=== PATIENT | male | born 2000 | race Caucasian/White ===

== ENCOUNTER 2023-11-27 14:53 | Emergency (ER) | payer MEDICAID ==
[2023-11-27 15:13] VITALS: O2SAT 100
--- NOTE | 2023-11-27 16:10 | ED Physician Documentation ---
PD HPI BACK PAIN - Stated complaint Stated Complaint: LOWER BACK PX - Chief complaint Chief Complaint: Back Pain - History obtained from History obtained from: Patient - Additional information Additional information: He has a lot of back pain in the past, but really became bad yesterday. He works a job with heavy lifting. Pain is in the lumbar spine. Radiates to both hips. It is worse with walking, bending, and lifting. No fevers. No IV drug use. No weakness, numbness, tingling, saddle anesthesia. PD PAST MEDICAL HISTORY - Past Medical History Past Medical History: Yes Cardiovascular: None Respiratory: None Neuro: None Endocrine/Autoimmune: None GI: None : None HEENT: None Psych: Depression, Anxiety Musculoskeletal: Chronic back pain Derm: None - Past Surgical History Past Surgical History: No - Present Medications Home Medications: Ambulatory Orders Medication Instructions Recorded Confirmed Cyclobenzaprine [Flexeril] 10 mg PO TID PRN #20 tablet 11/27/23 Meloxicam [Mobic] 7.5 mg PO BID PRN #20 tablet 11/27/23 - Allergies Allergies/Adverse Reactions: Allergies Allergy/AdvReac Type Severity Reaction Status Date / Time No Known Drug Allergies Allergy Verified 11/27/23 15:05 - Social History Does the pt smoke?: No Smoking Status: Never smoker Does the pt drink ETOH?: Yes Does the pt have substance abuse?: Yes Substance Use and Type: Marijuana - Immunizations Immunizations are current?: Yes PD ED PE NORMAL - Vitals Vital signs reviewed: Yes - General General: Alert and oriented X 3, No acute distress - Abdomen Abdomen: Non tender - Back Back: No spinal TTP, Other (He does have paralumbar spinal tenderness.) - Extremities Extremities: Other (The patient has equal and normal Achilles and patellar reflexes bilaterally. Normal sensation in all areas of the legs. Patient denies saddle anesthesia. Normal strength in flexion-extension at the ankles, knees, and flexion of the hips.) - Neuro Neuro: Alert and oriented X 3, Normal speech (.) Results - Vitals Vitals: Vital Signs - 24 hr 11/27/23 15:06 Temperature 36.9 C Heart Rate 86 Respiratory 18 Rate Blood Pressure 141/82 H O2 Saturation 100 Oxygen O2 Source Room air PD Medical Decision Making - ED course ED course: This patient has seemingly uncomplicated musculoskeletal back pain. The patient has no "red flags." Specifically denies IV drug use, fevers, incontinence, saddle anesthesia. Spinal epidural abscess was considered, given that the patient has no fever, is not diabetic, has no spinal tenderness, does not use IV drugs, and has no bilateral neurologic symptoms, the diagnosis of spinal epidural abscess is considered exceedingly unlikely. Departure - Departure Disposition: Home, Self Care Clinical Impression: Back pain Condition: Good Record reviewed to determine appropriate education?: Yes Instructions: ED Low Back Pain Injury Prescriptions: Cyclobenzaprine [Flexeril] 10 mg PO TID PRN #20 tablet PRN Reason: Spasms Meloxicam [Mobic] 7.5 mg PO BID PRN #20 tablet PRN Reason: Pain Comments: Call your doctor to arrange a follow-up appointment, make the next available appointment. In the interim, return anytime if worse or if new symptoms develop. Forms: Activity restrictions
[2023-11-27] MEDS: CYCLOBENZAPRINE 10 MG TABLET PO STA (16:16)
[2023-11-27] MEDS: KETOROLAC 60 MG/2 ML VIAL IM STA (16:16)
[2023-11-27 16:32] VITALS: BP 129/91
== END 2023-11-27 16:21 | disposition home or self-care (01) ==
LOC: ED 14:53
DX: M54.50 Low back pain, unspecified (principal); G89.29 Other chronic pain
CPT/HCPCS: 96372; 99283; A9270

== ENCOUNTER 2023-12-31 15:01 | Emergency (ER) | payer MEDICAID ==
[2023-12-31 15:19] VITALS: BP 160/90; O2SAT 100
--- NOTE | 2023-12-31 15:40 | ED Physician Documentation ---
PD HPI BACK PAIN - Stated complaint Stated Complaint: LOWER BACK PX,LT LEG NUMBNESS - Chief complaint Chief Complaint: Back Pain - History obtained from History obtained from: Patient - History of Present Illness Pain level max: 7 Pain level now: 7 Location: Lower, Right, Left Quality: Pain, Spasm Associated symptoms: Numbness. No: Fever, Weakness, Incontinent of urine, Unable to urinate, Hematuria Improves with: Rest Worsened by: Movement Contributing factors: Lifting. No: Twisting, Trauma, Anticoagulated, Cancer, IVDA, Out of meds - Additional information Additional information: Patient is a 23-year-old male who presents to the emergency department with lower back pain. He states that this is a chronic condition and has had for several years. 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 He was seen here a few weeks ago, recommended to take a week off of work and follow-up with the PCP. He states that financially he was not able to take the time off of work. Worse with movement, better with rest. The pain is mostly on the lower left but is also on the lower right. Occasionally radiates down to the left leg. He had 1 episode of numbness today to the left leg, left thigh but this is since resolved. No loss of bowel or bladder control. Not diabetic. Does not use IV drugs. Recently moved here from [place]. Review of Systems Constitutional: denies: Fever, Chills Respiratory: denies: Cough GI: denies: Nausea, Vomiting, Diarrhea Skin: denies: Rash Musculoskeletal: denies: Neck pain Neurologic: denies: Focal weakness, Numbness, Syncope, Seizure PD PAST MEDICAL HISTORY - Past Medical History Past Medical History: Yes Cardiovascular: None Respiratory: None Neuro: None Endocrine/Autoimmune: None GI: None : None HEENT: None Psych: Depression, Anxiety Musculoskeletal: Chronic back pain Derm: None - Past Surgical History Past Surgical History: No - Present Medications Home Medications: Ambulatory Orders Medication Instructions Recorded Confirmed Cyclobenzaprine [Flexeril] 10 mg PO TID PRN #20 tablet 11/27/23 Meloxicam [Mobic] 7.5 mg PO BID PRN #20 tablet 11/27/23 Cyclobenzaprine [Flexeril] 10 mg PO TID PRN #20 tablet 12/31/23 Ibuprofen [Motrin] 800 mg PO Q8H PRN #30 tablet 12/31/23 methylPREDNISolone [Medrol] 4 mg PO DAILY #1 each 12/31/23 oxyCODONE [Roxicodone] 5 - 10 mg PO Q6H PRN #14 tablet 12/31/23 MDD 6 - Allergies Allergies/Adverse Reactions: Allergies Allergy/AdvReac Type Severity Reaction Status Date / Time No Known Drug Allergies Allergy Verified 12/31/23 15:07 - Social History Does the pt smoke?: No Smoking Status: Never smoker Does the pt drink ETOH?: Yes Does the pt have substance abuse?: Yes - Immunizations Immunizations are current?: Yes - POLST Patient has POLST: No PD ED PE NORMAL - Vitals Vital signs reviewed: Yes - General General: Alert and oriented X 3, No acute distress - HEENT HEENT: Moist mucous membranes - Neck Neck: Supple, no meningeal sign - Cardiac Cardiac: RRR, Strong equal pulses - Respiratory Respiratory: No respiratory distress, Clear bilaterally - Abdomen Abdomen: Soft, Non tender, Non distended - Back Back: No spinal TTP, Other (No midline tenderness to palpation or percussion. No step-off or deformity. Paraspinal spasm present bilateral lower lumbar.) - Derm Derm: Warm and dry - Extremities Extremities: No edema, No calf tenderness / cord - Neuro Neuro: Alert and oriented X 3, Other (Normal bilateral lower extremity patellar and ankle jerk reflexes. Normal great toe extension bilaterally. no saddle anesthesia) - Psych Psych: Normal mood, Normal affect Results - Vitals Vitals: Vital Signs - 24 hr 12/31/23 15:07 Temperature 36.8 C Heart Rate 110 H Respiratory 18 Rate Blood Pressure 160/90 H O2 Saturation 100 Oxygen O2 Source Room air PD Medical Decision Making - ED course Complexity details: reviewed results, re-evaluated patient, considered differential (No cauda equina, no spinal epidural abscess, no fracture, no aortic dissection or evidence of aneursym rupture), d/w patient ED course: 23-year-old male with acute on chronic back pain. No evidence of cauda equina, epidural abscess. No focal neurological deficits. No indication for emergent imaging. Pain well-controlled here. Will place on steroids, pain medications and muscle relaxants for home. Recommend that he follow-up with his doctor for further care. Ambulating well in the emergency department. Patient counseled regarding signs and symptoms for which I believe and urgent re-evaluation would be necessary. Patient with good understanding of and agreement to plan and is comfortable going home at this time This document was made in part using voice recognition software. While efforts are made to proofread this document, sound alike and grammatical errors may occur. Departure - Departure Disposition: 01 Home, Self Care Clinical Impression: Back pain Qualifiers: Back pain location: low back pain Chronicity: acute Back pain laterality: left Sciatica presence: with sciatica Sciatica laterality: sciatica of left side Qualified Code(s): M54.42 - Lumbago with sciatica, left side Sciatica Qualifiers: Laterality: left Qualified Code(s): M54.32 - Sciatica, left side Condition: Good Instructions: ED Back Care Tips, ED Sciatica Follow-Up: your,doctor in 1 week [Other] [facility] [place] [Provider Group] [facility] [place] [Provider Group] Prescriptions: Cyclobenzaprine [Flexeril] 10 mg PO TID PRN #20 tablet PRN Reason: Spasms methylPREDNISolone [Medrol] 4 mg PO DAILY #1 each Ibuprofen [Motrin] 800 mg PO Q8H PRN #30 tablet PRN Reason: PAIN &/OR FEVER oxyCODONE [Roxicodone] 5 - 10 mg PO Q6H PRN #14 tablet MDD 6 PRN Reason: pain Comments: Your prescriptions were sent to [facility] in [place]. Please follow-up with your doctor for further care. Please return if you worsen. You can also follow-up with the walk-in clinics. There is one at [facility]. I am prescribing a short course of narcotic pain medication for you. These are potentially dangerous and addictive medications that should be used carefully. These medications may constipate you. Take an [id number]-ljcjsju stool softener (docusate) twice daily with plenty of water while taking these medications. If you go 24 hours without a bowel movement, take [id number] miralax, per pa ckage instructions. Do not drink or drive while taking these medications. If you received narcotic or sedating medications while in the emergency department, do not drive for 24 hours. Store this medication in a safe, secure place and out of reach of children. It is a violation of federal law to give or sell this medication to another person or to use in a manner other than prescribed. The ED will not refill narcotic prescriptions, including prescriptions lost or stolen. To dispose of unwanted medications: 1. [facility] at [address] in [place] has a medication drop box. They accept prescription medications (in pill form) Sunday through Sunday 9:00 a.m. to 5:00 p.m. 2. [facility] accepts prescription medications (in pill form only) for disposal year round. Call for more information. 3. Contact the [facility] for the next [facility] sponsored prescription drug collection event. , [phone], or [phone]; Forms: Activity restrictions Discharge Date/Time: 12/31/23 16:20
[2023-12-31] MEDS: KETOROLAC 60 MG/2 ML VIAL IM STA (15:50)
[2023-12-31] MEDS: CYCLOBENZAPRINE 10 MG TABLET PO STA (15:50)
[2023-12-31] MEDS: DEXAMETHASONE 10 MG/ML VIAL PO STA ×2 (15:50→16:03)
[2023-12-31] MEDS: oxyCODONE 5 MG TABLET PO STA (15:50)
== END 2023-12-31 16:20 | disposition home or self-care (01) ==
LOC: ED 15:01
DX: M54.42 Lumbago with sciatica, left side (principal)
CPT/HCPCS: 96372; 99283; A9270

== ENCOUNTER 2024-02-10 22:14 | Emergency (ER) | payer MEDICAID ==
[2024-02-10 22:23] VITALS: O2SAT 100
[2024-02-10] MEDS: TETANUS/DIPHTHERIA/PERTUSSIS 0.5 ML SYRINGE IM ONE (22:49)
--- NOTE | 2024-02-10 23:39 | ED Physician Documentation ---
PD HPI UPPER EXT INJURY - Stated complaint Stated Complaint: L ARM LAC - Chief complaint Chief Complaint: Laceration - History obtained from History obtained from: Patient - Additonal information Additional information: Patient is a 23-year-old male with a history of schizophrenia presenting for evaluation of left forearm laceration. Patient states he cut himself with a knife he has Due to feeling overwhelmed and overstressed earlier today. He was not trying to hurt himself . Is not having suicidal thoughts. He states he has not been on medications for schizophrenia in over 10 years and does have a recent increase stressors with the baby on the way as well as finances with his job. He is unsure of his last tetanus. Does not take a blood thinner. Review of Systems Skin: reports: Laceration (s) PD PAST MEDICAL HISTORY - Past Medical History Past Medical History: Yes Cardiovascular: None Respiratory: None Neuro: None Endocrine/Autoimmune: None GI: None : None HEENT: None Psych: Depression, Anxiety, Schizophrenia Musculoskeletal: Chronic back pain Derm: None - Past Surgical History Past Surgical History: No - Present Medications Home Medications: Ambulatory Orders Medication Instructions Recorded Confirmed Cyclobenzaprine [Flexeril] 10 mg PO TID PRN #20 tablet 11/27/23 Meloxicam [Mobic] 7.5 mg PO BID PRN #20 tablet 11/27/23 Cyclobenzaprine [Flexeril] 10 mg PO TID PRN #20 tablet 12/31/23 Ibuprofen [Motrin] 800 mg PO Q8H PRN #30 tablet 12/31/23 methylPREDNISolone [Medrol] 4 mg PO DAILY #1 each 12/31/23 oxyCODONE [Roxicodone] 5 - 10 mg PO Q6H PRN #14 tablet 12/31/23 MDD 6 - Allergies Allergies/Adverse Reactions: Allergies Allergy/AdvReac Type Severity Reaction Status Date / Time No Known Drug Allergies Allergy Verified 12/31/23 15:07 - Social History Does the pt smoke?: No Smoking Status: Never smoker Does the pt drink ETOH?: Yes Does the pt have substance abuse?: Yes - Immunizations Immunizations are current?: Yes - POLST Patient has POLST: No PD ED PE NORMAL - General General: Alert and oriented X 3, No acute distress, Well developed/nourished - HEENT HEENT: Atraumatic - Neck Neck: Supple, no meningeal sign - Cardiac Cardiac: RRR, Strong equal pulses - Respiratory Respiratory: No respiratory distress, Clear bilaterally - Extremities Extremities: Other (3-1/2 cm laceration to the dorsum of the left forearm, no signs of tendon injury, normal range of motion at left elbow and wrist, no ac tive bleeding) Results - Vitals Vitals: Vital Signs - 24 hr 02/10/24 02/10/24 22:17 23:50 Temperature 36.8 C 36.8 C Heart Rate 67 64 Respiratory 16 16 Rate Blood Pressure 140/87 H 130/88 H O2 Saturation 100 100 Oxygen O2 Source Room air Procedures - Laceration (location) Left forearm Length in cm: 3.5 Wound type: Linear Neurovascular status: Sensory intact, Motor intact, Vascular intact Tendon involvement: Tendon intact Anesthesia: Lidocaine 1% Wound preparation: Hibiclens, Irrigated copiously NS Skin layer closure: Size #-0 - enter number (4-0), Sutures - enter # (4) Other: Patient tolerated well, No complications, Neurovascular intact, Dressing applied, Tetanus booster given PD Medical Decision Making - ED course ED course: Patient with self-inflicted laceration to left forearm. He is not suicidal and does not want to speak to telepsychiatry or pursue inpatient counseling services. Significant other is at the bedside.Patient states he has been off of schizophrenia medications for a long time and has had increased stress recently- Does not appear to be acutely psychotic. No indications for involuntary hold. Wound was cleaned, irrigated and sutured. Tetanus was updated. Patient was given resources regarding counseling services. He understands concerning symp toms to return for as well as need for suture removal. Departure - Departure Disposition: 01 Home, Self Care Clinical Impression: Laceration of upper extremity, Schizophrenia Condition: Stable Instructions: ED Laceration Ext Sutr Stap Tape Comments: Come back for any signs of infection which would include: Redness, swelling, drainage, increased pain, or fevers. You can wash it soap and water. Keep it covered and moist with bacitracin ointment which is available over the counter; avoid neosporin. Follow-up with your physician in about 10-14 days for suture removal. Follow-up with [facility] at [phone] to schedule psychiatric care and counseling. Forms: PCP List, Activity restrictions Discharge Date/Time: 02/10/24 23:50
[2024-02-10] MEDS: BACITRACIN ZINC OINT 1 PACKET TOP STA (23:45)
[2024-02-10 23:54] VITALS: BP 130/88
== END 2024-02-10 23:50 | disposition home or self-care (01) ==
LOC: ED 22:14
DX: S51.812A Laceration without foreign body of left forearm, initial encounter (principal); W26.0XXA Contact with knife, initial encounter; Z23 Encounter for immunization; F20.9 Schizophrenia, unspecified
CPT/HCPCS: 12002; 90471; 90715; 99283; A9270

== ENCOUNTER 2024-02-20 06:17 | Emergency (ER) | payer MEDICAID ==
[2024-02-20 06:27] VITALS: O2SAT 99
--- NOTE | 2024-02-20 06:29 | ED Physician Documentation ---
PD HPI SKIN - Stated complaint Stated Complaint: STITCHES REMOVAL - Chief complaint Chief Complaint: Laceration - History obtained from History obtained from: Patient - Additional information Additional information: HPI from patient. Patient presents for suture removal. Patient was treated and released from this emergency department 10 days ago after sustaining a laceration to his left forearm; this was self-inflected with a knife. Patient tells me he has schizophrenia and cut himself due to problems related to his schizophrenia. He indicates that the wound has been healing well and that he has been adhering to the wound care instructions/directions. PD PAST MEDICAL HISTORY - Past Medical History Cardiovascular: None Respiratory: None Neuro: None Endocrine/Autoimmune: None GI: None : None HEENT: None Psych: Depression, Anxiety, Schizophrenia Musculoskeletal: Chronic back pain Derm: None - Past Surgical History Past Surgical History: No - Present Medications Home Medications: Ambulatory Orders Medication Instructions Recorded Confirmed Cyclobenzaprine [Flexeril] 10 mg PO TID PRN #20 tablet 11/27/23 Meloxicam [Mobic] 7.5 mg PO BID PRN #20 tablet 11/27/23 Cyclobenzaprine [Flexeril] 10 mg PO TID PRN #20 tablet 12/31/23 Ibuprofen [Motrin] 800 mg PO Q8H PRN #30 tablet 12/31/23 methylPREDNISolone [Medrol] 4 mg PO DAILY #1 each 12/31/23 oxyCODONE [Roxicodone] 5 - 10 mg PO Q6H PRN #14 tablet 12/31/23 MDD 6 - Allergies Allergies/Adverse Reactions: Allergies Allergy/AdvReac Type Severity Reaction Status Date / Time No Known Drug Allergies Allergy Verified 02/20/24 06:23 - Social History Does the pt smoke?: No Smoking Status: Never smoker Does the pt drink ETOH?: Yes Does the pt have substance abuse?: Yes - Immunizations Immunizations are current?: Yes - POLST Patient has POLST: No PD ED PE NORMAL - Vitals Vital signs reviewed: Yes - General General: Alert and oriented X 3 PD ED PE EXPANDED - Extremities GISELE UE/Hands Visual: 1 - laceration (healing laceration with four simple interrupted nylon sutures in place. wound edges are well-approximated. no erythema, tenderness, fluctuance, d/c) Results - Vitals Vitals: Vital Signs - 24 hr 02/20/24 02/20/24 06:23 06:36 Temperature 36 C L 36 C L Heart Rate 96 84 Respiratory 16 16 Rate Blood Pressure 134/84 H 127/68 O2 Saturation 99 99 Oxygen O2 Source Room air PD Medical Decision Making - ED course Complexity details: considered differential, d/w patient ED course: Sutures removed by ED RN and steri-strips placed Departure - Departure Disposition: Home, Self Care Clinical Impression: Encounter for removal of sutures Condition: Good Instructions: ED Wound Check Sutr Remove No Infec
[2024-02-20 06:50] VITALS: BP 127/68
== END 2024-02-20 06:36 | disposition home or self-care (01) ==
LOC: ED 06:17
DX: Z48.02 Encounter for removal of sutures (principal); S51.812D Laceration without foreign body of left forearm, subsequent encounter; Y28 Contact with sharp object, undetermined intent
CPT/HCPCS: 99281; 99282

== ENCOUNTER 2024-02-29 00:30 | Emergency (ER) | payer MEDICAID ==
--- NOTE | 2024-02-29 00:48 | ED Physician Documentation ---
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 Patient states that he felt flushed and hot and has been battling the heat the past couple of days since his camper van does not have AC.Denies fever, nausea or vomiting, diarrhea, abdominal pain or shortness of breath. PD PAST MEDICAL HISTORY - Past Medical History Past Medical History: Yes Cardiovascular: None Respiratory: None Neuro: None Endocrine/Autoimmune: None GI: None : None HEENT: None Psych: Depression, Anxiety, Schizophrenia Musculoskeletal: Chronic back pain Derm: None - Past Surgical History Past Surgical History: No - Present Medications Home Medications: Ambulatory Orders Medication Instructions Recorded Confirmed Cyclobenzaprine [Flexeril] 10 mg PO TID PRN #20 tablet 11/27/23 Meloxicam [Mobic] 7.5 mg PO BID PRN #20 tablet 11/27/23 Cyclobenzaprine [Flexeril] 10 mg PO TID PRN #20 tablet 12/31/23 Ibuprofen [Motrin] 800 mg PO Q8H PRN #30 tablet 12/31/23 methylPREDNISolone [Medrol] 4 mg PO DAILY #1 each 12/31/23 oxyCODONE [Roxicodone] 5 - 10 mg PO Q6H PRN #14 tablet 12/31/23 MDD 6 - Allergies Allergies/Adverse Reactions: Allergies Allergy/AdvReac Type Severity Reaction Status Date / Time No Known Drug Allergies Allergy Verified 02/29/24 00:43 - Social History Does the pt smoke?: No Smoking Status: Never smoker Does the pt drink ETOH?: Yes Does the pt have substance abuse?: Yes - Immunizations Immunizations are current?: Yes - POLST Patient has POLST: No PD ED PE NORMAL - Vitals Vital signs reviewed: Yes - General General: Alert and oriented X 3, No acute distress, Well developed/nourished - HEENT HEENT: Atraumatic, PERRL, EOMI - Neck Neck: Supple, no meningeal sign - Cardiac Cardiac: RRR - Respiratory Respiratory: No respiratory distress, Clear bilaterally - Abdomen Abdomen: Non tender, Non distended Results - Vitals Vitals: Vital Signs - 24 hr 02/29/24 00:30 Temperature 36.8 C Heart Rate 98 Respiratory 20 Rate Blood Pressure 142/74 H O2 Saturation 98 Oxygen O2 Source Room air - EKG (time done) 0051 EKG releavant findings:: EKG personally interpreted by author of this note. Relevant findings are: Rate: Rate (enter#) (73) Rhythm: NSR [place]: Normal Intervals: Normal AL QRS: Normal Ischemia: Normal ST segments PD Medical Decision Making - ED course ED course: Well-appearing 23-year-old presents status post episode of dizziness, chest pain, flushed sensation and diaphoresis. Given he is previously healthy and young, emergent etiologies are unlikely. EKG was unremarkable and cardiac monitoring is benign. Plan to follow-up outpatient with his primary care provider. Return precautions given. Departure - Departure Disposition: 01 Home, Self Care Clinical Impression: Chest pain, Dizziness Condition: Stable Comments: You were seen in the emergency department for medical evaluation. Your vital signs and exam were normal. You do need to stay well hydrated and get lots of re st tomorrow. Please follow-up with your primary care provider and return to the emergency department if you have any new or worsening symptoms or other concerns. Forms: PCP List, Activity restrictions
[2024-02-29 00:50] VITALS: O2SAT 98
[2024-02-29 01:24] VITALS: BP 126/71
== END 2024-02-29 01:10 | disposition home or self-care (01) ==
LOC: ED 00:30
DX: R42 Dizziness and giddiness (principal); R07.9 Chest pain, unspecified; Z79.899 Other long term (current) drug therapy
CPT/HCPCS: 93005; 99283; 99284